=== PATIENT | female | born 1985 | race Caucasian/White ===

== ENCOUNTER 2016-08-23 19:27 | Emergency (ER) ==
[2016-08-23 19:38] VITALS: BP 111/71
--- NOTE | 2016-08-23 20:22 | PROVIDER DOCUMENTATION ---
HPI-General Adult <Twan Mancia - Last Filed: 08/23/16 20:22> - General Source: patient - History of Present Illness -Gen Adult Nature of Presenting Problems: 30 year old F presents to the ED with a cc of chest burning, cough, and sore throat with an onset of this morning. PT states that about 3 months ago she was diagnosed with strep. PT states afterwards she began breaking out in a rash. PT states that it began on her back and then spread to a large patch on her stomach. PT states that now it is from her shoulders down to her ankles. PT c/o itching. Severity: reports: mild Onset/Duration: reports: this morning Timing: reports: still present Associated Symptoms: reports: cough, EENT symptoms, rash Similar Symptoms Previously?: No Recently seen or treated by another doctor?: No <Shell Rosario - Last Filed: 08/23/16 21:18> - General Chief Complaint: Cold Symptoms Stated Complaint: COLD SX Time Seen by Provider: 08/23/16 19:42 Allergies/Adverse Reactions: Patient Allergies Allergy/AdvReac Type Severity Reaction Status Date / Time azithromycin Allergy Intermediate SWELLING Verified 08/23/16 19:46 Home Medications: Home Medication List Medication Instructions Recorded Confirmed Last Taken Type Guaifenesin/D-Methorphan Hb/PE 1 each PO Q6-8H PRN PRN #14 tablet 08/23/16 Unknown Rx [Deconex Dmx Tablet] Hydrocortisone 1% Cream 1 applicatn TOP BID #1 tube 08/23/16 Unknown Rx Hydroxyzine [Atarax] 50 mg PO TID PRN #10 tablet 08/23/16 Unknown Rx Methylprednisolone [Medrol Dosepak] 4 mg PO DIRECTED #1 package 08/23/16 Unknown Rx Review of Systems - Adult - REVIEW OF SYSTEMS - ADULT Constitutional: denies: chills, fever Eyes: reports: no symptoms reported Ears, Nose, Mouth & Throat: reports: throat pain Cardiovascular: denies: chest pain, palpitations Respiratory: reports: cough. denies: shortness of breath Gastrointestinal: reports: no symptoms reported Genitourinary: reports: no symptoms reported Musculoskeletal: reports: no symptoms reported Integumentary: reports: itching, rash Neurological: reports: no symptoms reported Psychiatric: reports: no symptoms reported Endocrine: reports: no symptoms reported Hematologic/Lymphatic: reports: no symptoms reported Allergic/Immunologic: reports: no symptoms reported All Other Systems: Reviewed and Negative <Shell Rosario - Last Filed: 08/23/16 21:18> Past History - Adult - PRIOR SURGERIES/PROCEDURES Surgical/Procedure History: reports: cholecystectomy, BTL - IMMUNIZATION STATUS Childhood Immunizations: See Nurse Assessment Flu Vaccine: See Nurse Assessment - FAMILY HISTORY Family History: reviewed, not pertinent <Twan Mancia - Last Filed: 08/23/16 20:22> - PAST MEDICAL HISTORY-ADULT Review of Records: reports: Nursing Assessment Review, Medications Reviewed Major Childhood Illnesses: reports: denies history - PRIOR SURGERIES/PROCEDURES Surgical/Procedure History: reports: cholecystectomy, BTL - IMMUNIZATION STATUS Childhood Immunizations: See Nurse Assessment Flu Vaccine: See Nurse Assessment - SOCIAL HISTORY Smoking: cigarettes, greater than 1 pack/day Provider spent 3-5 mins advising pt. on dangers of tobacco.: Discussed manners to quit use, and f/u contacts for add'l counseling. Substance Use: none/never Alcohol Use Frequency: occasionally <Shell Rosario - Last Filed: 08/23/16 21:18> Physical Exam-General - PHYSICAL EXAM-ADULT Initial Vital Signs Reviewed: Yes - CONSTITUTIONAL General Appearance: appears well, alert, no apparent distress - RESPIRATORY Respiratory: chest non-tender, normal breath sounds, rhonchi (right upper lobe) - CARDIOVASCULAR Cardiovascular: normal peripheral pulses, regular rate, rhythm, no edema - MUSCULOSKELETAL Extremity: normal inspection - SKIN Integumentary: rash (generalized erythematous macular rash to torso, ABD, upper and lower extremities) - PSYCHIATRIC Psych/Mental Status: normal mood/affect, normal thought content, normal thought process, oriented x 3 <Shell Rosario - Last Filed: 08/23/16 21:18> Progress - PLAN OF CARE/RESULTS Progress/Plan/Lab Results: plan of care: labs Orders Category Date Time Status DIRECT STREP Stat Lab 08/23/16 19:35 Completed INFLUENZA SCREEN A/B Stat Lab 08/23/16 20:00 Completed Vital Signs - 24 hr 08/23/16 19:35 Temperature 98.4 F Pulse Rate 70 Respiratory 18 Rate Blood Pressure 111/71 O2 Sat by Pulse 100 Oximetry Pt given results and will be d/c home w/ rx to follow up with PCP. Pt verbally understood instructions. PT remained clinically stable throughout the course of the ED stay and will return if symptoms worsen. <Shell Rosario - Last Filed: 08/23/16 21:18> Departure - Departure Time of Disposition Order: 20:21 Certified Medical Emergency: Urgent <Twan Mancia - Last Filed: 08/23/16 20:22> <Shell Rosario - Last Filed: 08/23/16 21:18> - Departure DIAGNOSIS: Cold, Pityriasis rosea-like skin eruption Disposition: HOME 01 Condition: Good Additional Instructions: Take medication as prescribed. Follow up with a decal applier. ED Follow Up Instructions: You have been treated by a care provider in the Emergency Department. These instructions are being provided to you so you can have an understanding of how to care for yourself upon discharge. Upon discharge from the Emergency Department, you are responsible for making arrangements for follow-up care by a physician of your choice. Take all prescribed medications as directed. Return to the Emergency Department immediately for any new or worsening symptoms. You may call the Physician Referral phone number at [phone] to obtain a list of Physicians who are taking new patients. Prescriptions: Guaifenesin/D-Methorphan Hb/PE [Deconex Dmx Tablet] 1 each PO Q6-8H PRN PRN #14 tablet PRN Reason: Cough and congestion Hydrocortisone 1% Cream 1 applicatn TOP BID #1 tube Hydroxyzine [Atarax] 50 mg PO TID PRN #10 tablet PRN Reason: Itching Methylprednisolone [Medrol Dosepak] 4 mg PO DIRECTED #1 package Referrals: None,PCP [Primary Care Provider] - Gemma Suarez MD [STAFF PHYSICIAN] - Forms: Return to School/Parent Work Instructions: Pityriasis Rosea, Viral Infections, [id number]-[id number] Attestation - Physician/ ISH Attestation Patient care was provided by Advanced Practice Provider:: Yes Advanced Practice Provider:: Twan Mancia Advanced Practice Provider documentation review:: The Mid-level provider documentation, treatment plan and medical decision making was reviewed by the physician who agrees with all treatment and medical decision making by the MLP. <Twan Mancia - Last Filed: 08/23/16 20:22> - Scribe Verification/Attestation Scribe:: hSell Rosario Acting as Scribe for:: Twan Mancia Scribe documention review:: This chart was documented by a scribe and accurately reflects the service the provider performed and the decisions made by the provider. <Shell Rosario - Last Filed: 08/23/16 21:18> Physician Attestation - Physician Attestation I, the provider, attest to the following statement:: Twan Mancia Physician documentation Attestation:: This documentation recorded by the scribe accurately reflects the service I personally performed and the decisions made by me. <Shell Rosario - Last Filed: 08/23/16 21:18>
== END 2016-08-23 20:34 | disposition home or self-care (01) ==
LOC: ED 19:27
DX: L42 Pityriasis rosea (principal); J00 Acute nasopharyngitis [common cold]; R21 Rash and other nonspecific skin eruption; L29.9 Pruritus, unspecified; F17.210 Nicotine dependence, cigarettes, uncomplicated; Z71.6 Tobacco abuse counseling
CPT/HCPCS: 87081; 87430; 87804; 99283